=== PATIENT | male | born 2000 | race Caucasian/White ===

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

== ENCOUNTER 2020-11-04 20:06 | Emergency (ER) | payer BC ==
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
[2020-11-04] MEDS ORDERED: Sodium Chloride 0.9% 1000 ML 1,000 ML IV STA ×2 (20:28→21:47)
[2020-11-04] MEDS ORDERED: HYDROCODONE-ACETAMIN 2.5-108/5 ML SOLUTION PO STA ×2 (20:30→22:40)
[2020-11-04] MEDS ORDERED: DECADRON 10MG INJ. IV ONE (20:30)
[2020-11-04] MEDS ORDERED: DECADRON 10MG INJ. ONE (20:33)
[2020-11-04] MEDS ORDERED: HYDROCODONE-ACETAMIN 2.5-108/5 ML SOLUTION ONE ×2 (20:33→22:45)
[2020-11-04] MEDS ORDERED: Sodium Chloride 0.9% 1000 ML 1,000 ML ONE ×2 (20:33→21:55)
[2020-11-04 21:03] LABS: Absolute Neutrophil Ct (ANC) 5.18 (1.4-6.9); BASOPHIL % 0.4 % (0.0-0.4); Basophil (Absolute #) 0.03 (0-0.4); Eosinophil % 0.4 % (0.00-5.0); Eosinophil (Absolute #) 0.03 (0-0.5); Hematocrit 50.3 % (42-50); Hemoglobin 16.6 gm/dl (12.5-18.0); Lymphocyte (Absolute #) 1.37 (1.0-4.6); Lymphocytes % 17.8 % (24.0-44.0); Mean Cell Volume 94.2 fl (78-100); Mean Corpuscular Hemoglobin 31.1 pg (26-32); Mean Platelet Volume 10.9 fl (7.5-11.0); Monocytes % 14.3 % (0.0-12.0); Neutrophil % 67.1 % (36.0-66.0); Platelet Count 197 K/mm3 (150-450); Red Blood Count 5.34 M/mm3 (4.1-5.6); Red Cell Distribution Width 12.7 % (11.5-14.0); White Blood Count 7.7 K/mm3 (4.0-10.5)
[2020-11-04 21:15] LABS: ALBUMIN 4.4 g/dL (3.5-5.0); ALKALINE PHOSPHATASE 66 U/L (38-126); AMYLASE 47 U/L (30-110); ANION GAP 13.8 MEQ/L (5-15); BLOOD UREA NITROGEN 11 mg/dL (9-20); CHLORIDE 105 mmol/L (98-107); Calcium 8.3 mg/dL (8.4-10.2); Carbon Dioxide 23 mmol/L (22-30); Creatinine 1 1.14 mg/dL (0.66-1.25); EST GLOMERULAR FILTRATION RATE > 60.0 ML/MIN; Glucose 89 mg/dL (74-106); LDH-LACTATE DEHYDROGENASE 195 U/L (120-246); Potassium 3.3 mmol/L (3.5-5.1); SGOT/AST 70 U/L (17-59); SGPT/ALT 95 U/L (0-50); SODIUM 139 mmol/L (137-145); Total Protein 7.1 g/dL (6.3-8.2)
[2020-11-04 21:19] LABS: Appearance CLEAR (CLEAR); Bilirubin NEGATIVE (NEGATIVE); Blood SMALL Ery/ul (0-5); Glucose NEGATIVE (NEGATIVE); Ketones NEGATIVE (NEGATIVE); Leukocyte Esterase NEGATIVE (NEGATIVE); Mucus SLIGHT /HPF (NEGATIVE); Nitrite NEGATIVE (NEGATIVE); Protein,Urine Dip NEGATIVE (Negative); RBC 0-2 /HPF (0-2); Specific Gravity 1.021 (1.005-1.025); Urobilinogen 2 mg/dL (0-1); WBC 0-2 /HPF (0-5)
[2020-11-04 21:32] LABS: INFLUENZA A NEGATIVE (NEGATIVE); INFLUENZA B NEGATIVE (NEGATIVE)
[2020-11-04] MEDS ORDERED: Klor Con 10 MEQ PO ONE ×2 (21:43→21:55)
[2020-11-04 23:07] VITALS: BP 119/74; PULSE 110; O2SAT 97
--- NOTE | 2020-11-05 08:57 | XRAY ---
Indication: Cough and headache. Suspect Covid 19. Comparison: August 22, 2020. Portable chest again demonstrates normal heart, lungs, and bony thorax.
== END 2020-11-04 23:05 | disposition home or self-care (01) ==
LOC: ED 20:06
DX: B34.2 Coronavirus infection, unspecified (principal); R05 Cough; R51.9 Headache, unspecified; R09.81 Nasal congestion
CPT/HCPCS: 36000; 36415; 71045; 80053; 81001; 82150; 82728; 83605; 83615; 85025; 85379; 86308; 87040; 87400; 87651; 93005; 94760; 96360; 96374; 99284; U0003; J1100; A9270-GY

== ENCOUNTER 2020-11-06 06:23 | Emergency (ER) | payer BC ==
[2020-11-06] MEDS ORDERED: Zofran 4 MG/2 ML VIAL IV ONE (07:20)
[2020-11-06] MEDS ORDERED: Sodium Chloride 0.9% 1000 ML 1,000 ML IV STA ×2 (07:20→09:24)
--- NOTE | 2020-11-06 07:20 | ERPHSYRPT ---
- History of Present Illness Time Seen by Provider: 11/06/20 07:00 Source: patient Exam Limitations: no limitations Patient Subjective Stated Complaint: pt states he has been increasingly short of breath since previous visit and headache has gotten worse. Triage Nursing Assessment: pt alert and oriented, answers questions approp. pt ambulatory with steady gait noted. respirations nonlabored with lungs cta. pt able to speak win full sentences without diff. heart rate sinus tach on monitor at 110. skin pink warm and dry. pupils equal and reactive. bilat upper and lower ext stregth equal and wnl. Physician History: This is a 20-year-old white male who was seen here 2 days ago with similar symptoms. However, patient states his headache and shortness of breath has worsened. Prescriptions for prednisone and Lortab elixir were sent to the patient's pharmacy at the time of his last visit here 2 days ago. 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 Patient's COVID-19 test is pending. Patient does not have chest pain. He has not taken any Tylenol or ibuprofen. He has not measured any temperature. Patient denies neck pain. He still has a cough. He has myalgias and arthralgias. His influenza a and B and mono tests were negative. His strep test was negative as well. Timing/Duration: day(s) (2) Cough Quality/Degree: mild Possible Cause: occasional episodes Modifying Factors: Improves With: coughing Associated Symptoms: cough, headache, muscle aches, shortness of breath Allergies/Adverse Reactions: Sulfa (Sulfonamide Antibiotics) Allergy (Mild, Verified 11/06/20 06:40) Itching Hx Tetanus, Diphtheria Vaccination/Date Given: Yes Hx Influenza Vaccination/Date Given: No Hx Pneumococcal Vaccination/Date Given: No Immunizations Up to Date: Yes Travel Risk - International Travel Have you traveled outside of the country in past 3 weeks: No - Coronavirus Screening Are you exhibiting any of the following symptoms?: Yes Symptoms: Fever, Cough: New Onset, Shortness of Breath, Headaches/Body Aches/Fatigue Close contact with a COVID-19 positive Pt in past 14-21 Days: No - Vaccine Status Have you recieved a Covid-19 vaccination: No - Review of Systems Constitutional: No Symptoms Eyes: No Symptoms Respiratory: Cough, Dyspnea Cardiac: No Symptoms, No Chest Pain Abdominal/Gastrointestinal: No Symptoms Genitourinary Symptoms: No Symptoms Musculoskeletal: No Symptoms Skin: No Symptoms Neurological: No Symptoms Psychological: No Symptoms Endocrine: No Symptoms Hematologic/Lymphatic: No Symptoms Immunological/Allergic: No Symptoms All Other Systems: Reviewed and Negative - Past Medical History Pertinent Past Medical History: Yes Neurological History: Other ENT History: No Pertinent History Cardiac History: No Pertinent History Respiratory History: No Pertinent History Endocrine Medical History: No Pertinent History Musculoskeletal History: Other GI Medical History: No Pertinent History History: Renal Disease, Other Psycho-Social History: Attention Deficit Disorder Male Reproductive Disorders: No Pertinent History Other Medical History: HAS HAD HEADACHES SINCE ACCIDENT. USING MEDICATION TO SLEEP DUE TO HEADACHES THOUGH DOES FEEL LIKE THEY ARE SLOWLY IMPROVING. CONT INUES TO HAVE SENSITIVITY TO SUNLIGHT. - Past Surgical History Past Surgical History: No Neuro Surgical History: No Pertinent History Cardiac: No Pertinent History Respiratory: No Pertinent History Gastrointestinal: No Pertinent History Genitourinary: No Pertinent History Musculoskeletal: Orthopedic Surgery Male Surgical History: No Pertinent History Other Surgical History: lt shoulder surgery - Social History Smoking Status: Never smoker Exposure to second hand smoke: No Drug Use: none Patient Lives Alone: No - Nursing Vital Signs Nursing Vital Signs: Initial Vital Signs Temperature 99.0 F 11/06/20 06:24 Pulse Rate 115 H 11/06/20 06:24 Respiratory Rate 18 11/06/20 06:24 Blood Pressure 135/84 11/06/20 06:24 O2 Sat by Pulse Oximetry 97 11/06/20 06:24 Pain Scale Pain Intensity 2 - Physical Exam General Appearance: no apparent distress, alert Eye Exam: PERRL/EOMI Ears, Nose, Throat Exam: normal ENT inspection, moist mucous membranes Neck Exam: normal inspection, non-tender, supple, full range of motion Respiratory Exam: normal breath sounds, lungs clear, airway intact, No chest tenderness, No respiratory distress Cardiovascular Exam: tachycardia Gastrointestinal/Abdomen Exam: soft, normal bowel sounds, No tenderness Rectal Exam: not done Back Exam: normal inspection, normal range of motion, No CVA tenderness, No vertebral tenderness Extremity Exam: normal inspection, normal range of motion, pelvis stable Neurologic Exam: alert, oriented x 3, 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, 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, normal mood/affect, nml cerebellar function, nml station & gait, sensation nml Skin Exam: normal color, warm, dry Lymphatic Exam: No adenopathy SpO2 Interpretation: normal SpO2: 97 O2 Delivery: Room Air - Course Nursing assessment & vital signs reviewed: Yes EKG Interpreted by Me: RATE, Sinus Tach Ordered Tests: Active Orders 24 hr Category Date Time Status EKG-ER Only STAT Care 11/06/20 07:20 Active IV Insertion STAT Care 11/06/20 07:20 Active Isolation, Initiate & Maintain STAT Care 11/06/20 07:21 Active Pulse Oximetry (ED) STAT Care 11/06/20 07:20 Active CHEST WITH CONTRAST [CT] Stat Exams 11/06/20 07:24 Completed HEAD WITHOUT CONTRAST [CT] Stat Exams 11/06/20 07:21 Completed BLOOD CULTURE Stat Lab 11/06/20 07:45 Received CBC W DIFF Stat Lab 11/06/20 07:20 Completed CMP Stat Lab 11/06/20 07:20 Completed D-DIMER QUANTITATIVE Stat Lab 11/06/20 07:20 Completed Ferritin Stat Lab 11/06/20 07:20 Received LDH-LACTATE DEHYDROGENASE Stat Lab 11/06/20 07:20 Completed Lactic Acid Stat Lab 11/06/20 07:20 Completed UA W/RFX UR CULTURE Stat Lab 11/06/20 08:44 Completed Medication Summary Generic Name Dose Route Start Last Admin Trade Name Freq PRN Reason Stop Dose Admin Sodium Chloride 1,000 mls @ 999 mls/hr 11/06/20 09:24 Sodium Chloride 0.9% 1000 Ml IV 11/06/20 10:24 .Q1H1M STA Discontinued Medications Generic Name Dose Route Start Last Admin Trade Name Freq PRN Reason Stop Dose Admin Dexamethasone Sodium Phosphate 10 mg 11/06/20 08:48 11/06/20 08:52 Decadron 10mg Inj. IV 11/06/20 08:49 10 mg STAT ONE Administration Dexamethasone Sodium Phosphate Confirm 11/06/20 08:50 Decadron 10mg Inj. Administered 11/06/20 08:51 Dose 10 mg .ROUTE .STK-MED ONE Sodium Chloride 1,000 mls @ 999 mls/hr 11/06/20 07:20 11/06/20 09:25 Sodium Chloride 0.9% 1000 Ml IV 11/06/20 08:20 Infused .Q1H1M STA Infusion Sodium Chloride Confirm 11/06/20 07:43 Sodium Chloride 0.9% 1000 Ml Administered 11/06/20 07:44 Dose 1,000 mls @ ud .ROUTE .STK-MED ONE Morphine Sulfate 4 mg 11/06/20 07:25 11/06/20 07:44 Morphine Sulfate 4 Mg Inj IV 11/06/20 07:26 4 mg STAT ONE Administration Morphine Sulfate Confirm 11/06/20 07:42 Morphine Sulfate 4 Mg Inj Administered 11/06/20 07:43 Dose 4 mg .ROUTE .STK-MED ONE Ondansetron HCl 4 mg 11/06/20 07:20 11/06/20 07:45 Zofran 4 Mg/2 Ml Vial IV 11/06/20 07:21 4 mg STAT ONE Administration Ondansetron HCl Confirm 11/06/20 07:42 Zofran 4 Mg/2 Ml Vial Administered 11/06/20 07:43 Dose 4 mg .ROUTE .STK-MED ONE Lab/Rad Data: Laboratory Result Diagrams 11/06/20 07:20 11/06/20 07:20 Laboratory Results 11/06/20 11/06/20 11/06/20 Range/Units 08:44 07:45 07:20 WBC (4.0-10.5) K/mm3 RBC (4.1-5.6) M/mm3 Hgb (12.5-18.0) gm/dl Hct (42-50) % MCV (78-100) fl MCH (26-32) pg MCHC (32-36) g/dl RDW (11.5-14.0) % Plt Count (150-450) K/mm3 MPV (7.5-11.0) fl Gran % (36.0-66.0) % Eos # (Auto) (0-0.5) Absolute Lymphs (auto) (1.0-4.6) Absolute Monos (auto) (0.0-1.3) Lymphocytes % (24.0-44.0) % Monocytes % (0.0-12.0) % Eosinophils % (0.00-5.0) % Basophils % (0.0-0.4) % Absolute Granulocytes (1.4-6.9) Basophils # (0-0.4) D-Dimer 326 (215-500) ng/mL Sodium (137-145) mmol/L Potassium (3.5-5.1) mmol/L Chloride (98-107) mmol/L Carbon Dioxide (22-30) mmol/L Anion Gap (5-15) MEQ/L BUN (9-20) mg/dL Creatinine (0.66-1.25) mg/dL Estimated GFR ML/MIN Glucose (74-106) mg/dL Lactic Acid (0.4-2.0) Calcium (8.4-10.2) mg/dL Total Bilirubin (0.2-1.3) mg/dL AST (17-59) U/L ALT (0-50) U/L Alkaline Phosphatase (38-126) U/L Lactate Dehydrogenase (120-246) U/L Serum Total Protein (6.3-8.2) g/dL Albumin (3.5-5.0) g/dL Urine Color YELLOW (YELLOW) Urine Appearance CLEAR (CLEAR) Urine pH 5.0 (5-6) Ur Specific [place] 1.050 (1.005-1.025) Urine Protein NEGATIVE (Negative) Urine Ketones NEGATIVE (NEGATIVE) Urine Blood NEGATIVE (0-5) Best/ul Urine Nitrite NEGATIVE (NEGATIVE) Urine Bilirubin NEGATIVE (NEGATIVE) Urine Urobilinogen NEGATIVE (0-1) mg/dL Ur Leukocyte Esterase NEGATIVE (NEGATIVE) Urine WBC (Auto) NONE (0-5) /HPF Urine RBC (Auto) NONE (0-2) /HPF U Epithel Cells (Auto) NONE (FEW) /HPF Urine Bacteria (Auto) NONE (NEGATIVE) /HPF Urine Mucus (Auto) SLIGHT (NEGATIVE) /HPF Urine Culture Reflexed NO (NO) Urine Glucose NEGATIVE (NEGATIVE) mg/dL Group A Strep Antibody NOT DETECTED (NEGATIVE) 11/06/20 11/06/20 11/06/20 Range/Units 07:20 07:20 07:20 WBC 9.8 (4.0-10.5) K/mm3 RBC 5.37 (4.1-5.6) M/mm3 Hgb 16.6 (12.5-18.0) gm/dl Hct 50.5 H (42-50) % MCV 94.0 (78-100) fl MCH 30.9 (26-32) pg MCHC 32.9 (32-36) g/dl RDW 12.9 (11.5-14.0) % Plt Count 199 (150-450) K/mm3 MPV 11.0 (7.5-11.0) fl Gran % 72.9 H (36.0-66.0) % Eos # (Auto) 0.05 (0-0.5) Absolute Lymphs (auto) 1.71 (1.0-4.6) Absolute Monos (auto) 0.88 (0.0-1.3) Lymphocytes % 17.4 L (24.0-44.0) % Monocytes % 9.0 (0.0-12.0) % Eosinophils % 0.5 (0.00-5.0) % Basophils % 0.2 (0.0-0.4) % Absolute Granulocytes 7.17 H (1.4-6.9) Basophils # 0.02 (0-0.4) D-Dimer (215-500) ng/mL Sodium 138 (137-145) mmol/L Potassium 3.7 (3.5-5.1) mmol/L Chloride 103 (98-107) mmol/L Carbon Dioxide 23 (22-30) mmol/L Anion Gap 15.7 H (5-15) MEQ/L BUN 14 (9-20) mg/dL Creatinine 1.11 (0.66-1.25) mg/dL Estimated GFR > 60.0 ML/MIN Glucose 92 (74-106) mg/dL Lactic Acid 1.6 (0.4-2.0) Calcium 8.3 L (8.4-10.2) mg/dL Total Bilirubin 0.50 (0.2-1.3) mg/dL AST 66 H (17-59) U/L ALT 86 H (0-50) U/L Alkaline Phosphatase 59 (38-126) U/L Lactate Dehydrogenase 164 (120-246) U/L Serum Total Protein 6.8 (6.3-8.2) g/dL Albumin 4.1 (3.5-5.0) g/dL Urine Color (YELLOW) Urine Appearance (CLEAR) Urine pH (5-6) Ur Specific [place] (1.005-1.025) Urine Protein (Negative) Urine Ketones (NEGATIVE) Urine Blood (0-5) Best/ul Urine Nitrite (NEGATIVE) Urine Bilirubin (NEGATIVE) Urine Urobilinogen (0-1) mg/dL Ur Leukocyte Esterase (NEGATIVE) Urine WBC (Auto) (0-5) /HPF Urine RBC (Auto) (0-2) /HPF U Epithel Cells (Auto) (FEW) /HPF Urine Bacteria (Auto) (NEGATIVE) /HPF Urine Mucus (Auto) (NEGATIVE) /HPF Urine Culture Reflexed (NO) Urine Glucose (NEGATIVE) mg/dL Group A Strep Antibody (NEGATIVE) - Progress Progress: improved Air Movement: good Progress Note: 11/06/20 08:47 CAT scan of the head without contrast shows no acute intracranial abnormality. CAT scan of the chest with contrast shows no central pulmonary embolus. There is suboptimal opacification. There is bilateral patchy airspace disease. 11/06/20 08:55 I reevaluated this patient and he states he is feeling better. I also discussed with him the need for lumbar puncture to evaluate for meningitis. I did tell him that his symptoms are consistent with COVID-19 viral infection. However, he has returned with significant headache. His headache has now improved. Patient is refusing a lumbar puncture. I told him that this was the only way to determine if he had meningitis or not. I discussed with him the risk benefits alternatives. He is refusing the lumbar puncture at this time. He will sign a refusal of care for this procedure. Blood Culture(s) Obtained: Yes Antibiotics given: No Counseled pt/family regarding: lab results, diagnosis, need for follow-up, rad results - Departure Departure Disposition: Home Clinical Impression: Viral infection, Headache Condition: Stable Critical Care Time: No Referrals: DOCTOR,NO FAMILY [Primary Care Provider] - Additional Instructions: Drink plenty of fluids. bread supervisor your medication from the pharmacy and take as prescribed. Return to the emergency department if symptoms worsen. Quarantine yourself until you receive the results of your COVID-19 test.
[2020-11-06] MEDS ORDERED: MORPHINE SULFATE 4 MG INJ IV ONE (07:25)
[2020-11-06] MEDS ORDERED: MORPHINE SULFATE 4 MG INJ ONE (07:42)
[2020-11-06] MEDS ORDERED: Zofran 4 MG/2 ML VIAL ONE (07:42)
[2020-11-06] MEDS ORDERED: Sodium Chloride 0.9% 1000 ML 1,000 ML ONE ×2 (07:43→09:30)
[2020-11-06 07:57] LABS: Absolute Neutrophil Ct (ANC) 7.17 (1.4-6.9); BASOPHIL % 0.2 % (0.0-0.4); Basophil (Absolute #) 0.02 (0-0.4); Eosinophil % 0.5 % (0.00-5.0); Eosinophil (Absolute #) 0.05 (0-0.5); Hematocrit 50.5 % (42-50); Hemoglobin 16.6 gm/dl (12.5-18.0); Lymphocyte (Absolute #) 1.71 (1.0-4.6); Lymphocytes % 17.4 % (24.0-44.0); Mean Corpuscular Hemoglobin 30.9 pg (26-32); Mean Corpuscular Hgb Concent. 32.9 g/dl (32-36); Monocyte (Absolute #) 0.88 (0.0-1.3); Neutrophil % 72.9 % (36.0-66.0); Platelet Count 199 K/mm3 (150-450); Red Blood Count 5.37 M/mm3 (4.1-5.6); Red Cell Distribution Width 12.9 % (11.5-14.0); White Blood Count 9.8 K/mm3 (4.0-10.5)
--- NOTE | 2020-11-06 08:39 | XRAY ---
Indication: Headache. Suspect Covid 19. Multiple contiguous axial images obtained through the head without contrast. Comparison: None Normal appearing brain parenchyma, ventricles, and bony calvarium. Visualized paranasal sinuses and mastoid air cells are clear. Impression: Normal CT head without contrast exam.
--- NOTE | 2020-11-06 08:41 | XRAY ---
Indication: Headache, cough, short of breath, nausea, and dizziness. Suspect Covid 19. Multiple contiguous axial images obtained through the chest using 100 cc Isovue 370 contrast and PE protocol. Comparison: None There is suboptimal opacification of the pulmonary arteries limiting evaluation for pulmonary embolus. No obvious central pulmonary embolus. Heart not enlarged. Aorta is normal in course and caliber. No pathologic mediastinal/hilar lymphadenopathy. Lungs demonstrate a few scattered patchy airspace disease bilaterally greatest left lower lobe. No consolidation or effusion. Bony thorax intact. Limited upper abdomen demonstrates fatty liver. Impression: 1. Pulmonary embolus evaluation limited due to suboptimal contrast opacification. No obvious central pulmonary embolus. 2. Bilateral patchy airspace disease. Commonly reported imaging features of Covid 19 pneumonia are present. Other processes such as influenza pneumonia and organizing pneumonia, as can be seen with drug toxicity and connective-tissue disease, can cause a similar imaging pattern. 3. Incidental fatty liver.
[2020-11-06] MEDS ORDERED: DECADRON 10MG INJ. IV ONE (08:48)
[2020-11-06] MEDS ORDERED: DECADRON 10MG INJ. ONE (08:50)
[2020-11-06 08:58] LABS: Appearance CLEAR (CLEAR); Bilirubin NEGATIVE (NEGATIVE); Blood NEGATIVE Ery/ul (0-5); Glucose NEGATIVE (NEGATIVE); Ketones NEGATIVE (NEGATIVE); Leukocyte Esterase NEGATIVE (NEGATIVE); Mucus SLIGHT /HPF (NEGATIVE); Nitrite NEGATIVE (NEGATIVE); Protein,Urine Dip NEGATIVE (Negative); Urobilinogen NEGATIVE mg/dL (0-1)
[2020-11-06 09:06] LABS: ALBUMIN 4.1 g/dL (3.5-5.0); ALKALINE PHOSPHATASE 59 U/L (38-126); ANION GAP 15.7 MEQ/L (5-15); BLOOD UREA NITROGEN 14 mg/dL (9-20); CHLORIDE 103 mmol/L (98-107); Calcium 8.3 mg/dL (8.4-10.2); Carbon Dioxide 23 mmol/L (22-30); Creatinine 1 1.11 mg/dL (0.66-1.25); EST GLOMERULAR FILTRATION RATE > 60.0 ML/MIN; Glucose 92 mg/dL (74-106); LDH-LACTATE DEHYDROGENASE 164 U/L (120-246); Potassium 3.7 mmol/L (3.5-5.1); SGOT/AST 66 U/L (17-59); SGPT/ALT 86 U/L (0-50); SODIUM 138 mmol/L (137-145); Total Protein 6.8 g/dL (6.3-8.2)
[2020-11-06 10:31] VITALS: BP 113/69; PULSE 106; O2SAT 95
== END 2020-11-06 10:43 | disposition home or self-care (01) ==
LOC: ED 06:23
DX: R06.02 Shortness of breath (principal); R51.9 Headache, unspecified; B34.9 Viral infection, unspecified; R05 Cough; M79.10 Myalgia, unspecified site
CPT/HCPCS: 36000; 36415; 70450; 71260; 80053; 81001; 82728; 83605; 83615; 85025; 85379; 87040; 87651; 93005; 94760; 96360; 96374; 96375; 99285; J1100; J2270; J2405

== ENCOUNTER 2020-11-10 15:35 | Emergency (ER) | payer BC ==
[2020-11-10] MEDS ORDERED: Sodium Chloride 0.9% 1000 ML 1,000 ML IV STA (16:38)
[2020-11-10] MEDS ORDERED: Zofran 4 MG/2 ML VIAL IV ONE (16:38)
--- NOTE | 2020-11-10 16:43 | ERPHSYRPT ---
- History of Present Illness Source: patient Exam Limitations: no limitations Patient Subjective Stated Complaint: PT HERE FOR FEVER,COUGH, VOMITING, PT IS COVID POSITIVE AND THIS IS HES 3RD TIME HERE. Triage Nursing Assessment: PT WALKED IN, SKIN W/D/P, RESP EASY, FACE MASK IN PLACE, PT STATES HE IS ABLE TO EAT AND DRINK Physician History: 20 yo wm w +CV19 on 11/04/20 present w N/V/D/[place]/cough/coryza. Pt's 3rd trip to ER for CV19. Timing/Duration: other (Since 11/04/20) Cough Quality/Degree: dry cough Possible Cause: frequent episodes Modifying Factors: Improves With: activity Associated Symptoms: fever, chills, cough, headache, muscle aches, nasal congestion, nasal drainage, shortness of breath, No chest pain/soreness, No dizziness, No earache, No facial pain, No lightheadedness, No sinus infection, No sore throat, No wheezing Allergies/Adverse Reactions: Sulfa (Sulfonamide Antibiotics) Allergy (Mild, Verified 11/10/20 16:12) Itching Hx Tetanus, Diphtheria Vaccination/Date Given: Yes Hx Influenza Vaccination/Date Given: No Hx Pneumococcal Vaccination/Date Given: No Immunizations Up to Date: Yes Travel Risk - International Travel Have you traveled outside of the country in past 3 weeks: No - Coronavirus Screening Are you exhibiting any of the following symptoms?: Yes Symptoms: Fever, Cough: New Onset, Vomiting/Diarrhea, Headaches/Body Aches/Fatigue Close contact with a COVID-19 positive Pt in past 14-21 Days: No - Vaccine Status Have you recieved a Covid-19 vaccination: No - Review of Systems Constitutional: No Symptoms, Fever, Chills, Lethargy Eyes: No Symptoms Ears, Nose, & Throat: No Symptoms, Nose Pain, Sinus Drainage Respiratory: No Symptoms, Cough, Dyspnea Cardiac: No Symptoms Abdominal/Gastrointestinal: No Symptoms, Nausea, Vomiting, Diarrhea Genitourinary Symptoms: No Symptoms Musculoskeletal: Arthralgias, Myalgias Skin: No Symptoms Neurological: No Symptoms, Headache Psychological: No Symptoms Endocrine: No Symptoms Hematologic/Lymphatic: No Symptoms Immunological/Allergic: No Symptoms - Past Medical History Pertinent Past Medical History: Yes Neurological History: Other ENT History: No Pertinent History Cardiac History: No Pertinent History Respiratory History: No Pertinent History Endocrine Medical History: No Pertinent History Musculoskeletal History: Other GI Medical History: No Pertinent History History: Renal Disease, Other Psycho-Social History: Attention Deficit Disorder Male Reproductive Disorders: No Pertinent History Other Medical History: HAS HAD HEADACHES SINCE ACCIDENT. USING MEDICATION TO SLEEP DUE TO HEADACHES THOUGH DOES FEEL LIKE THEY ARE SLOWLY IMPROVING. CONTINUES TO HAVE SENSITIVITY TO SUNLIGHT. - Past Surgical History Past Surgical History: No Neuro Surgical History: No Pertinent History Cardiac: No Pertinent History Respiratory: No Pertinent History Gastrointestinal: No Pertinent History Genitourinary: No Pertinent History Musculoskeletal: Orthopedic Surgery Male Surgical History: No Pertinent History Other Surgical History: lt shoulder surgery - Social History Smoking Status: Never smoker Exposure to second hand smoke: No Drug Use: none Patient Lives Alone: No Significant Family History: no pertinent family hx - Nursing Vital Signs Nursing Vital Signs: Initial Vital Signs Temperature 99.9 F 11/10/20 16:03 Pulse Rate 109 H 11/10/20 16:03 Respiratory Rate 18 11/10/20 16:03 Blood Pressure 127/59 11/10/20 16:03 O2 Sat by Pulse Oximetry 94 L 11/10/20 16:03 Pain Scale Pain Intensity 6 Tachy - Physical Exam General Appearance: no apparent distress Eye Exam: PERRL/EOMI, eyes nml inspection Ears, Nose, Throat Exam: normal ENT inspection, TMs normal, pharynx normal, moist mucous membranes Neck Exam: normal inspection, non-tender, supple, full range of motion, No meningismus, No mass Respiratory Exam: normal breath sounds, lungs clear, airway intact, No respiratory distress Cardiovascular Exam: tachycardia, No murmur Gastrointestinal/Abdomen Exam: soft, normal bowel sounds, No tenderness Extremity Exam: normal inspection, normal range of motion Neurologic Exam: alert, oriented x 3, 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 IV 11/10/20 17:54 10 mg STAT ONE Administration Dexamethasone Sodium Phosphate Confirm 11/10/20 17:59 Decadron 10mg Inj. Administered 11/10/20 18:00 Dose 10 mg .ROUTE .STK-MED ONE Sodium Chloride 1,000 mls @ 999 mls/hr 11/10/20 16:38 11/10/20 18:01 Sodium Chloride 0.9% 1000 Ml IV 11/10/20 17:38 Infused .Q1H1M STA Infusion Sodium Chloride Confirm 11/10/20 16:51 Sodium Chloride 0.9% 1000 Ml Administered 11/10/20 16:52 Dose 1,000 mls @ ud .ROUTE .STK-MED ONE Ondansetron HCl 4 mg 11/10/20 16:38 11/10/20 16:54 Zofran 4 Mg/2 Ml Vial IV 11/10/20 16:39 4 mg STAT ONE Administration Ondansetron HCl Confirm 11/10/20 16:51 Zofran 4 Mg/2 Ml Vial Administered 11/10/20 16:52 Dose 4 mg .ROUTE .STK-MED ONE - Progress Progress: improved Progress Note: 11/10/20 17:54 1L NS bolus/4mg IV Zofran 10mg IV Decadron Pt's sats 94-96% during stay. Counseled pt/family regarding: diagnosis, need for follow-up - Departure Departure Disposition: Home Clinical Impression: COVID-19 Condition: Stable Critical Care Time: No Referrals: DOCTOR,NO FAMILY [Primary Care Provider] - Instructions: Coronavirus Disease 2019 (COVID-19) (DC) Additional Instructions: Rest Fluids Motrin/Tylenol for pain VitaminD 10,000units a day Zinc 50mg a day Pepcid 40mg a day Get a pulse oximeter and monitior oxygen saturation 2-3 times a day Return to ER for persistent saturation less than 91% Prescriptions: Ondansetron ODT 4 MG [Zofran Odt 4 mg] 4 mg PO Q6H PRN PRN #10 PRN Reason: Nausea/Vomiting
[2020-11-10] MEDS ORDERED: Zofran 4 MG/2 ML VIAL ONE (16:51)
[2020-11-10] MEDS ORDERED: Sodium Chloride 0.9% 1000 ML 1,000 ML ONE (16:51)
[2020-11-10 17:34] VITALS: PULSE 78
[2020-11-10] MEDS ORDERED: DECADRON 10MG INJ. IV ONE (17:53)
[2020-11-10] MEDS ORDERED: DECADRON 10MG INJ. ONE (17:59)
[2020-11-10 18:17] VITALS: BP 101/51
[2020-11-10 20:40] VITALS: O2SAT 94
== END 2020-11-10 18:17 | disposition home or self-care (01) ==
LOC: ED 15:35
DX: U07.1 COVID-19 (principal); R50.9 Fever, unspecified; R05 Cough; R11.2 Nausea with vomiting, unspecified; J00 Acute nasopharyngitis [common cold]
CPT/HCPCS: 96360; 96374; 96375; 99284; J1100; J2405

== ENCOUNTER 2022-12-08 17:03 | Emergency (ER) | payer BC, MEDICAID ==
--- NOTE | 2022-12-08 17:09 | ERPHSYRPT ---
- History of Present Illness Time Seen by Provider: 12/08/22 17:08 Source: patient Exam Limitations: no limitations Physician History: This is a morbidly obese 22-year-old white male patient who has been lifting bending twisting turning pulling heavy equipment at work. His symptoms began in the last day or 2 and slowly has worsened and today the pain is a 10 out of 10 it is stabbing and constant. It is in the thoracic lumbar region. He did not fall. It is in the midline not in the areas of his flanks. Timing/Duration: day(s) (Last couple of days), worse Method of Injury: bending, lifting, twisted, turning Quality: sharp, stabbing Back Pain Location: T-spine, lumbar spine Severity of Pain-Max: moderate Severity of Pain-Current: moderate Modifying Factors: Improves With: movement Associated Symptoms: lower back pain, No urinary incontinence, No loss of bowel control, No numbness in legs/feet, No sensory/motor loss, No tingling in legs/feet Previous symptoms: no prior history Allergies/Adverse Reactions: Sulfa (Sulfonamide Antibiotics) Allergy (Mild, Verified 12/08/22 17:17) Itching Hx Tetanus, Diphtheria Vaccination/Date Given: Yes Hx Influenza Vaccination/Date Given: No Hx Pneumococcal Vaccination/Date Given: No Travel Risk - International Travel Have you traveled outside of the country in past 3 weeks: No - Coronavirus Screening Are you exhibiting any of the following symptoms?: No Close contact with a COVID-19 positive Pt in past 14-21 Days: No - Vaccine Status Have you recieved a Covid-19 vaccination: No - Review of Systems Constitutional: No Symptoms Eyes: No Symptoms Ears, Nose, & Throat: No Symptoms Respiratory: No Symptoms Cardiac: No Symptoms Abdominal/Gastrointestinal: No Symptoms Genitourinary Symptoms: No Symptoms Musculoskeletal: Back Pain, No Fall, No Injury Skin: No Symptoms Neurological: No Symptoms Psychological: No Symptoms Endocrine: No Symptoms Hematologic/Lymphatic: No Symptoms Immunological/Allergic: No Symptoms All Other Systems: Reviewed and Negative - Past Medical History Pertinent Past Medical History: Yes Neurological History: Other ENT History: No Pertinent History Cardiac History: No Pertinent History Respiratory History: No Pertinent History Endocrine Medical History: No Pertinent History Musculoskeletal History: Other GI Medical History: No Pertinent History History: Renal Disease, Other Psycho-Social History: Attention Deficit Disorder Male Reproductive Disorders: No Pertinent History Other Medical History: HAS HAD HEADACHES SINCE ACCIDENT. USING MEDICATION TO SLEEP DUE TO HEADACHES THOUGH DOES FEEL LIKE THEY ARE SLOWLY IMPROVING. CONTINUES TO HAVE SENSITIVITY TO SUNLIGHT. - Past Surgical History Past Surgical History: No Neuro Surgical History: No Pertinent History Cardiac: No Pertinent History Respiratory: No Pertinent History Gastrointestinal: No Pertinent History Genitourinary: No Pertinent History Musculoskeletal: Orthopedic Surgery Male Surgical History: No Pertinent History Other Surgical History: lt shoulder surgery - Social History Smoking Status: Never smoker Exposure to second hand smoke: No Drug Use: none Patient Lives Alone: No Significant Family History: no pertinent family hx - Nursing Vital Signs Nursing Vital Signs: Initial Vital Signs Temperature 99.8 F 12/08/22 17:11 Pulse Rate 94 H 12/08/22 17:11 Respiratory Rate 18 12/08/22 17:11 Blood Pressure 116/78 12/08/22 17:11 O2 Sat by Pulse Oximetry 98 12/08/22 17:11 Pain Scale Pain Intensity [Lower Back] 10 Pain Intensity 8 - Physical Exam General Appearance: no apparent distress, alert, anxiety, obese Eye Exam: PERRL/EOMI, eyes nml inspection Ears, Nose, Throat Exam: normal ENT inspection, moist mucous membranes Neck Exam: normal inspection, non-tender, supple, full range of motion Respiratory Exam: normal breath sounds, lungs clear, No chest tenderness, No respiratory distress Cardiovascular Exam: regular rate/rhythm, normal heart sounds, normal peripheral pulses Gastrointestinal Exam: soft, normal bowel sounds, No tenderness Rectal Exam: not done Back Exam: normal inspection, vertebral tenderness, decreased range of motion, muscle spasm Extremity Exam: normal inspection, normal range of motion, pelvis stable Neurologic Exam: alert, oriented x 3, cooperative, 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 threader II-XII nml as tested, normal mood/affect, nml cerebellar function, nml station & gait Skin Exam: normal color, warm, dry Lymphatic Exam: No adenopathy SpO2 Interpretation: normal O2 Delivery: Room Air - Course Nursing assessment & vital signs reviewed: Yes Ordered Tests: Active Orders 24 hr Category Date Time Status LUMBAR LIMITED (2 OR 3 VIEWS) Stat Exams 12/08/22 17:43 Taken THORACIC SPINE (AP,LAT,SWIMM) Stat Exams 12/08/22 17:43 Taken Medication Summary Discontinued Medications Generic Name Dose Route Start Last Admin Trade Name Freq PRN Reason Stop Dose Admin Methylprednisolone Sodium 0 mg 12/08/22 18:18 12/08/22 18:30 Succinate 125 mg/ Sterile IM 12/08/22 18:19 125 mg Water 2 ml STAT ONE Administration Methylprednisolone Sodium Succinate Confirm 12/08/22 18:29 Methylprednis Sod Succ 125 Mg/2 Ml Vial Administered 12/08/22 18:30 Dose 125 mg .ROUTE .STK-MED ONE Orphenadrine Citrate 60 mg 12/08/22 18:18 12/08/22 18:30 Orphenadrine Citrate 60 Mg/2 Ml Vial IM 12/08/22 18:19 60 mg STAT ONE Administration Orphenadrine Citrate Confirm 12/08/22 18:29 Orphenadrine Citrate 60 Mg/2 Ml Vial Administered 12/08/22 18:30 Dose 60 mg .ROUTE .STK-MED ONE Oxycodone/Acetaminophen 1 tab 12/08/22 18:20 12/08/22 18:30 Oxycodone Hcl/Apap 5 Mg/325 Mg Tablet PO 12/08/22 18:21 1 tab STAT STA Administration Oxycodone/Acetaminophen Confirm 12/08/22 18:29 Oxycodone Hcl/Apap 5 Mg/325 Mg Tablet Administered 12/08/22 18:30 Dose 1 tab .ROUTE .STK-MED ONE Sterile Water Confirm 12/08/22 18:29 Water For Injection,Sterile 10 Ml Vial Administered 12/08/22 18:30 Dose 10 ml IJ .STK-MED ONE - Progress Progress: improved, pain not gone completely Progress Note: 12/08/22 18:26 Patient's medical issue is of low complexity. The level of complexity in the work-up performed is based on review of the patient's past medical history, review of the patient's medication list, review the patient's drug allergy list, history present illness and physical findings on examination. The work-up includes thoracic spine and lumbar spine x-rays. No laboratory studies are necessary in this patient. 12/08/22 19:12 I reviewed and interpreted the thoracic spine x-ray. There are no acute fractures or subluxations. The lumbar spine x-ray was interpreted by me. There is no evidence of acute fractures or subluxations. Counseled pt/family regarding: diagnosis, need for follow-up, rad results Medical Desision Making - Independent Historian Additional History obtained from: Mother - Diagnostic Testing Diagnostic test were ordered, analyzed, and reviewed by me: Yes Radiological Interpretation: Interpreted by me - Risk of complications The pt has a mod risk of morbidity or mortality based on: Need for prescription drug management - Departure Departure Disposition: Home Clinical Impression: Back pain Condition: Stable Critical Care Time: No Referrals: JULES LEZAMA MD [Primary Care Provider] - Follow up/PCP as directed Additional Instructions: Take your medication as prescribed. Follow-up with your primary care provider by phone, on 12/09/2022, to make arrangement for appointment in the next 3 to 5 days for further evaluation management. Forms: Work/School Release Form Prescriptions: Oxycodone HCl/Acetaminophen [Percocet 5-325 mg Tablet] 1 each PO Q8H PRN PRN #6 tablet MDD 3 PRN Reason: Moderate To Severe Pain Prednisone 10 mg [Deltasone 10 mg] 10 mg PO TID #12 tablet
[2022-12-08 17:17] VITALS: TEMP 99.8
[2022-12-08] MEDS ORDERED: solu-MEDROL ONE (18:29)
[2022-12-08] MEDS ORDERED: PERCOCET TABLET 5/325MG ONE (18:29)
[2022-12-08] MEDS ORDERED: Norflex 60 MG/2 ML ONE (18:29)
[2022-12-08] MEDS ORDERED: Sterile H2O 10 ml IJ ONE (18:29)
[2022-12-08] MEDS: PERCOCET TABLET 5/325MG PO STA (18:30)
[2022-12-08] MEDS: Norflex 60 MG/2 ML IM ONE (18:30)
[2022-12-08] MEDS: solu-MEDROL 125 MG, Sterile H2O 10 ml 2 ML IM ONE ×2 (18:30)
[2022-12-08 19:20] VITALS: BP 118/86; PULSE 88; RESP 18; O2SAT 94
--- NOTE | 2022-12-09 08:38 | XRAY ---
Indication: Pain. Comparison: None AP/lateral thoracic spine demonstrates 12 rib-bearing segments with minimal levoscoliosis centered at T10. No other bony, articular, or soft tissue abnormalities.
--- NOTE | 2022-12-09 08:40 | XRAY ---
Indication: Pain. Comparison: November 07, 2012 3 view lumbar spine again demonstrates normal lumbar alignment with vertebral body heights/disc spaces maintained. New minimal L1-L2 endplate spurring. No other bony, articular, or soft tissue abnormalities.
== END 2022-12-08 19:26 | disposition home or self-care (01) ==
LOC: ED 17:03
DX: M54.6 Pain in thoracic spine (principal); M54.50 Low back pain, unspecified; Z79.52 Long term (current) use of systemic steroids; Z79.891 Long term (current) use of opiate analgesic; Z28.310 Unvaccinated for COVID-19
CPT/HCPCS: 72072; 72100; 96372; 99283; J2360; J2930; A9270-GY

== ENCOUNTER 2023-08-04 19:50 | Emergency (ER) | payer OTHER ==
[2023-08-04 20:18] VITALS: RESP 18; TEMP 97.8; O2SAT 96
[2023-08-04] MEDS ORDERED: Hydromorphone 1 mg/ml Injection ONE (20:19)
[2023-08-04] MEDS: Hydromorphone 1 mg/ml Injection IM ONE (20:20)
[2023-08-04] MEDS ORDERED: Adacel Vial IM ONE (21:03)
[2023-08-04] MEDS: Adacel Vial IM ONE (21:05)
--- NOTE | 2023-08-04 21:06 | ERPHSYRPT ---
- History of Present Illness Time Seen by Provider: 08/04/23 20:04 Source: patient Exam Limitations: no limitations Patient Subjective Stated Complaint: pt states that he was changing a tire and the drum blew and hit his hand Triage Nursing Assessment: pt ambulated into the er; pt is axo x4; c/o rt hand pain; pt states 6/10 pain to rt hand; limited ROM to rt hand; drainage present to rt middle finger; good cap refill to rt hand; strong rt radial pulse; hypertensive; no respiratory distress Physician History: 23-year-old right-handed dominant male was changing/working on tire when drum blew and hit his right hand. Patient complaining of moderate to severe sharp pain in the third and fourth digit distal phalanx/pulp area with an abrasion. Complaining of pain radiating to the hand and distal forearm. Reports numbness and tingling sensation at the fingertips. Unsure about tetanus status. Pain is aggravated with minimal movements, touching the distal phalanx Allergies/Adverse Reactions: Sulfa (Sulfonamide Antibiotics) Allergy (Mild, Verified 08/04/23 20:07) Itching Hx Tetanus, Diphtheria Vaccination/Date Given: Yes Hx Influenza Vaccination/Date Given: No Hx Pneumococcal Vaccination/Date Given: No Travel Risk - International Travel Have you traveled outside of the country in past 3 weeks: No - Emerging Infectious Disease Are you exhibiting symptoms associated with any current EIDs: No - Review of Systems Constitutional: No Symptoms Respiratory: No Symptoms Cardiac: No Symptoms Musculoskeletal: Injury Skin: Skin Lesions Neurological: No Symptoms Endocrine: No Symptoms Hematologic/Lymphatic: No Symptoms - Past Medical History Pertinent Past Medical History: Yes Neurological History: Other ENT History: No Pertinent History Cardiac History: Hypertension Respiratory History: No Pertinent History Endocrine Medical History: No Pertinent History Musculoskeletal History: Other GI Medical History: No Pertinent History History: Renal Disease, Other Psycho-Social History: Attention Deficit Disorder Male Reproductive Disorders: No Pertinent History Other Medical History: HAS HAD HEADACHES SINCE ACCIDENT. USING MEDICATION TO SLEEP DUE TO HEADACHES THOUGH DOES FEEL LIKE THEY ARE SLOWLY IMPROVING. CONTINUES TO HAVE SENSITIVITY TO SUNLIGHT. - Past Surgical History Past Surgical History: Yes Neuro Surgical History: No Pertinent History Cardiac: No Pertinent History Respiratory: No Pertinent History Gastrointestinal: No Pertinent History Genitourinary: No Pertinent History Musculoskeletal: Orthopedic Surgery Male Surgical History: No Pertinent History Other Surgical History: lt shoulder surgery Significant Family History: no pertinent family hx - Social History Smoking Status: Never smoker Exposure to second hand smoke: No Drug Use: none Patient Lives Alone: No - Social Determinants of Health Will the patient participate in the screening: Yes Do you worry about a steady place to live?: No Do you have any problems with any of the following?: No known problems In the past 12 months,have you had to go without utilities?: No Transportation Issues: No Has anyone in your support network made you feel unsafe?: No Have you or anyone in your house had to go without enough: No - Nursing Vital Signs Nursing Vital Signs: Initial Vital Signs Temperature 97.8 F 08/04/23 20:08 Pulse Rate 99 H 08/04/23 20:08 Respiratory Rate 18 08/04/23 20:08 Blood Pressure 143/90 08/04/23 20:08 O2 Sat by Pulse Oximetry 96 08/04/23 20:08 Pain Scale Pain Intensity 6 - Physical Exam General Appearance: no apparent distress Neck Exam: normal inspection, full range of motion Cardiovascular/Respiratory Exam: normal breath sounds, regular rate/rhythm Elbow/Forearm Exam: normal inspection, non-tender, no evidence of injury, normal ROM Wrist Exam: normal inspection, no evidence of injury, normal ROM, soft tissue tenderness (Mild) Hand Exam: bone tenderness, limited ROM (Is distal interphalangeal joint of the third and fourth digit. Small blister at palmar aspect of fourth digit. Cap refill less than 3 seconds.), soft tissue tenderness, swelling, No normal inspection (Diffuse swelling) Neuro/Tendon Exam: normal sensation Mental Status Exam: alert, oriented x 3, cooperative Skin Exam: normal color SpO2 Interpretation: normal SpO2: 96 O2 Delivery: Room Air Ordered Tests: Active Orders 24 hr Category Date Time Status HAND (MINIMUM 3 VIEWS) Stat Exams 08/04/23 20:25 Taken WRIST (MIN 3 VIEWS) Stat Exams 08/04/23 20:25 Taken Medication Summary Generic Name Dose Route Start Last Admin Trade Name Freq PRN Reason Stop Dose Admin Diphtheria/Tetanus/Acell Pertussis 0.5 ml 08/04/23 21:00 Tdap --Diph,Pertuss(Acell),Tet Vac/Pf 0.5 Ml Vial IM 08/04/23 21:01 .ONCE ONE Discontinued Medications Generic Name Dose Route Start Last Admin Trade Name Freq PRN Reason Stop Dose Admin Hydromorphone HCl 2 mg 08/04/23 20:16 08/04/23 20:20 Hydromorphone 1 Mg/1ml Inj IM 08/04/23 20:17 2 mg STAT ONE Administration Hydromorphone HCl Confirm 08/04/23 20:19 Hydromorphone 1 Mg/1ml Inj Administered 08/04/23 20:20 Dose 2 mg .ROUTE .STK-MED ONE - Progress Progress: improved, pain not gone completely Progress Note: 08/04/23 21:07 23-year-old is evaluated in the ER for fingers/hand injury while changing a ti re. Patient has abrasion beside the nail of fourth digit. Intact distal neurovascular. Decreased range of motion of the distal interphalangeal joint of fourth digit. X-rays hand showed fourth digit tuft fracture reviewed by me, official report is pending. No acute fracture in the wrist reviewed by me with pending official report. Thoroughly cleaned, tetanus is updated, given symptomatic treatment for pain here. Eusebio taping and finger splint done. Outpatient orthopedics follow-up recommended. Counseled pt/family regarding: diagnosis, need for follow-up, rad results Medical Desision Making - Diagnostic Testing Diagnostic test were ordered, analyzed, and reviewed by me: Yes Radiological Interpretation: Interpreted by me, Reviewed by me - Risk of complications The pt has a mod risk of morbidity or mortality based on: Need for prescription drug management - Departure Departure Disposition: Home Clinical Impression: Finger fracture, right, Hand contusion Condition: Stable Critical Care Time: No Referrals: JULES LEZAMA MD [Primary Care Provider] - Follow up with PCP 1 day KRYSTINA COMBS MD [ACTIVE STAFF] - Follow up/PCP as directed (Tomorrow morning for reevaluation) Instructions: Hand Fracture (DC) Additional Instructions: Intermittent ice application. Tylenol/ibuprofen as needed for pain. Keep it elevated. Follow-up with orthopedics for reevaluation. Return to ER for intractable pain/swelling, difficulty movements of the finger, numbness or bluish discoloration of the finger, difficulty movements at the wrist etc. Prescriptions: Hydrocodone/Acetaminophen [Hydrocodone-Acetamin 7.5-325] 1 each PO Q6HPRN PRN 3 Days #12 tablet MDD 4 PRN Reason: Pain Ibuprofen 600 mg PO Q6HPRN PRN 10 Days #20 tablet PRN Reason: Pain
[2023-08-04] MEDS ORDERED: NORCO 5/325 MG ONE ×2 (21:21)
[2023-08-04] MEDS: NORCO 5/325 MG PO ONE (21:22)
[2023-08-04 21:37] VITALS: BP 138/68; PULSE 87
--- NOTE | 2023-08-05 08:26 | XRAY ---
Indication: Pain following trauma. Comparison: None 3 view right wrist obtained. No bony, articular, or soft tissue abnormalities.
--- NOTE | 2023-08-05 08:28 | XRAY ---
Indication: Pain following injury. Comparison: None 3 view right hand demonstrates nondisplaced 4th tuft fracture. No other bony, articular, or soft tissue abnormalities.
== END 2023-08-04 21:30 | disposition home or self-care (01) ==
LOC: ED 19:50
DX: S62.634A Displaced fracture of distal phalanx of right ring finger, initial encounter for closed fracture (principal); S60.221A Contusion of right hand, initial encounter; W20.8XXA Other cause of strike by thrown, projected or falling object, initial encounter; I10 Essential (primary) hypertension; Z79.891 Long term (current) use of opiate analgesic; Z23 Encounter for immunization
CPT/HCPCS: 73110; 73130; 90471; 90715; 96372; 99284; J1170; A9270-GY

== ENCOUNTER 2024-11-16 20:27 | Emergency (ER) | payer SELFPAY ==
[2024-11-16 20:40] VITALS: TEMP 97.6
--- NOTE | 2024-11-16 20:42 | ERPHSYRPT ---
- History of Present Illness Time Seen by Provider: 11/16/24 20:42 Source: patient, family Exam Limitations: no limitations Physician History: This is a 24-year-old overweight right male patient arrives for private vehicle and is a patient of Dr. Mcnamara. Patient arrives with family. Patient has a history of left shoulder surgery for a rotator cuff repair in the past. This morning, approximately Jones a.m., the patient was trying to change the oil on a vehicle. The oil filter was very tight so he leaned into it, using his left shoulder. As he leaned into it, he felt a "pop". Since then he has had pain in that left shoulder. He is unable to raise his left shoulder above the level of his chest. Patient states that the pain at rest is 3 out of 10. However with attempt to move it and raise the left upper extremity above the level of the chest, it is a 9 out of 10. Patient has a history of hypertension, ADD and chronic renal disease. Occurred: this morning Method of Injury: other (Pushing and leaning) Quality: constant, aching Severity of Pain-Max: moderate Severity of Pain-Current: moderate Extremities Pain Location: shoulder: left Modifying Factors: Improves With: movement Associated Symptoms: none Allergies/Adverse Reactions: Sulfa (Sulfonamide Antibiotics) Allergy (Mild, Verified 11/16/24 20:40) Itching Home Medications: Lisinopril 10 mg [Zestril 10 MG] 1 tab PO HS 11/16/24 [History] Hx Tetanus, Diphtheria Vaccination/Date Given: Yes Hx Influenza Vaccination/Date Given: No Hx Pneumococcal Vaccination/Date Given: No Travel Risk - International Travel Have you traveled outside of the country in past 3 weeks: No - Emerging Infectious Disease Are you exhibiting symptoms associated with any current EIDs: No - Review of Systems Constitutional: No Symptoms Eyes: No Symptoms Ears, Nose, & Throat: No Symptoms Respiratory: No Symptoms Cardiac: No Symptoms Abdominal/Gastrointestinal: No Symptoms Genitourinary Symptoms: No Symptoms Musculoskeletal: Injury (Left shoulder) Skin: No Symptoms Neurological: No Symptoms Psychological: No Symptoms Endocrine: No Symptoms Hematologic/Lymphatic: No Symptoms Immunological/Allergic: No Symptoms All Other Systems: Reviewed and Negative - Past Medical History Pertinent Past Medical History: Yes Neurological History: Other ENT History: No Pertinent History Cardiac History: Hypertension Respiratory History: No Pertinent History Endocrine Medical History: No Pertinent History Musculoskeletal History: Other GI Medical History: No Pertinent History History: Renal Disease, Other Psycho-Social History: Attention Deficit Disorder Male Reproductive Disorders: No Pertinent History Other Medical History: HAS HAD HEADACHES SINCE ACCIDENT. USING MEDICATION TO SLEEP DUE TO HEADACHES THOUGH DOES FEEL LIKE THEY ARE SLOWLY IMPROVING. CONTINUES TO HAVE SENSITIVITY TO SUNLIGHT. - Past Surgical History Past Surgical History: Yes Neuro Surgical History: No Pertinent History Cardiac: No Pertinent History Respiratory: No Pertinent History Gastrointestinal: No Pertinent History Genitourinary: No Pertinent History Musculoskeletal: Orthopedic Surgery Male Surgical History: No Pertinent History Other Surgical History: lt shoulder surgery Significant Family History: no pertinent family hx - Social History Smoking Status: Never smoker Exposure to second hand smoke: No Drug Use: none Patient Lives Alone: No - Social Determinants of Health Will the patient participate in the screening: Yes Do you worry about a steady place to live?: No In the past 12 months,have you had to go without utilities?: No Transportation Issues: No Has anyone in your support network made you feel unsafe?: No Have you or anyone in your house had to go w/o enough food: No - Nursing Vital Signs Nursing Vital Signs: Initial Vital Signs Temperature 97.6 F 11/16/24 20:34 Pulse Rate 96 H 11/16/24 20:34 Respiratory Rate 18 11/16/24 20:34 Blood Pressure 170/96 11/16/24 20:34 O2 Sat by Pulse Oximetry 98 11/16/24 20:34 Pain Scale Pain Intensity 3 - Physical Exam General Appearance: no apparent distress, alert, anxiety, obese Eyes, Ears, Nose, Throat Exam: normal ENT inspection, moist mucous membranes Neck Exam: normal inspection, non-tender, supple, full range of motion Cardiovascular/Respiratory Exam: chest non-tender, no respiratory distress Abdominal Exam: non-tender Back Exam: normal inspection, normal range of motion, No CVA tenderness, No vertebral tenderness Shoulder Exam: normal inspection, bone tenderness (Left shoulder left shoulder), limited ROM (Left shoulder), soft tissue tenderness Elbow/Forearm Exam: normal inspection, non-tender, no evidence of injury, normal ROM Wrist Exam: normal inspection, non-tender, no evidence of injury, normal ROM Hand Exam: normal inspection, non-tender, no evidence of injury, normal ROM Neuro/Tendon Exam: normal sensation, normal motor functions, normal tendon functions Mental Status Exam: alert, oriented x 3, cooperative Skin Exam: normal color, warm, dry SpO2 Interpretation: normal SpO2: 98 O2 Delivery: Room Air - Course Nursing assessment & vital signs reviewed: Yes Ordered Tests: Active Orders 24 hr Category Date Time Status Sling Application STAT Care 11/16/24 21:43 Active SHOULDER Stat Exams 11/16/24 21:17 Taken Medication Summary Discontinued Medications Generic Name Dose Route Start Last Admin Trade Name Abebe PRN Reason Stop Dose Admin Methylprednisolone Sodium 0 mg 11/16/24 21:42 Succinate 125 mg/ Sterile IM 11/16/24 21:43 Water 2 ml STAT ONE Orphenadrine Citrate 60 mg 11/16/24 21:43 Orphenadrine Citrate 60 Mg/2 Ml Vial IM 11/16/24 21:44 STAT ONE Oxycodone/Acetaminophen 1 tab 11/16/24 21:42 Oxycodone / Apap 10/325 Mg 1 Tablet PO 11/16/24 21:43 STAT STA - Progress Progress: improved, pain not gone completely, re-examined Progress Note: 11/16/24 21:38 My medical decision making and the assignment of low complexity of this patient's medical issue today is based on review of the patient's past medical history, reviewed patient's medication list, reviewed patient drug allergy list, history of present illness and physical findings on examination. The workup in this patient includes x-ray of the patient's left shoulder. Differential diagnosis includes but is not limited to left shoulder contusion, left shoulder dislocation, left shoulder fracture. 11/16/24 21:45 I interpreted the patient's preliminary x-ray of the left shoulder. I see no acute fracture or dislocation. Counseled pt/family regarding: diagnosis, need for follow-up, rad results Medical Desision Making - Independent Historian Additional History obtained from: Family - Diagnostic Testing Diagnostic test were ordered, analyzed, and reviewed by me: Yes Radiological Interpretation: Interpreted by me - Risk of complications Low Risk: Low risk of morbidity from additional dx testing or treatment The pt has a mod risk of morbidity or mortality based on: Need for prescription drug management - Departure Departure Disposition: Home Clinical Impression: Left shoulder pain Condition: Stable Critical Care Time: No Referrals: JULES LEZAMA MD [Primary Care Provider, INTERNAL MEDICINE] - Follow up/PCP as directed Additional Instructions: Ice pack to tender area 3 times a day for the next 3 days. Take your medications as prescribed. Call your primary care provider on 11/19/2024, to make arrangements for follow-up appointment to be seen in the next 3 to 5 days. You may also be further evaluated at the [facility] orthopedic clinic on 11/19/2024 at 8 AM. It is a walk-in clinic and you do not need to have an appointment. Wear the sling for comfort Prescriptions: Oxycodone HCl/Acetaminophen [Percocet 5-325 mg Tablet] 1 each PO Q8H PRN PRN #6 tablet MDD 3 PRN Reason: Moderate To Severe Pain Orphenadrine Citrate 100 mg [Norflex 100 MG Tablet] 100 mg PO BID #10 tab
[2024-11-16] MEDS ORDERED: OXYCODONE-ACETAMINOPHEN 10-325 ONE (21:57)
[2024-11-16] MEDS ORDERED: Norflex 60 MG/2 ML ONE (21:57)
[2024-11-16] MEDS ORDERED: Sterile H2O 10 ml IJ ONE (21:57)
[2024-11-16] MEDS: solu-MEDROL 125 MG, Sterile H2O 10 ml 2 ML IM ONE (22:00)
[2024-11-16] MEDS: OXYCODONE-ACETAMINOPHEN 10-325 PO STA ×2 (22:00→22:01)
[2024-11-16] MEDS: Norflex 60 MG/2 ML IM ONE (22:01)
[2024-11-16 22:23] VITALS: O2SAT 97
[2024-11-16 22:25] VITALS: BP 187/108; PULSE 91; RESP 18
--- NOTE | 2024-11-16 23:06 | XRAY ---
Indication: Pain following injury. Comparison: June 25, 2019 3 view left shoulder now demonstrates 1 cm opacity overlying proximal humeral shaft only seen on AP views and not on scapular Y view. Finding felt to be external. No other bony, articular, or soft tissue abnormalities.
== END 2024-11-16 22:20 | disposition home or self-care (01) ==
LOC: ED 20:27
DX: M25.512 Pain in left shoulder (principal); I12.9 Hypertensive chronic kidney disease with stage 1 through stage 4 chronic kidney disease, or unspecified chronic kidney disease; N18.9 Chronic kidney disease, unspecified; Z79.891 Long term (current) use of opiate analgesic; Z79.899 Other long term (current) drug therapy